=== PATIENT | male | born 1945 | race Caucasian/White ===

== ENCOUNTER 2016-04-09 18:34 | Emergency (ER) | payer MEDICARE, MEDICAID ==
[~2016-04-09] VITALS: Ht 165.1 cm; Wt 101.0 kg
[~2016-04-09 18:34] MED LIST: AMLO10TA3 PO; ATOR80TA77 PO; CARV25TA2 PO; DOCU100C54 PO; FURO40TA4 PO; INSU100I; INSU100I13 SUBQ; RANI150C4 PO; TRAZ-115 PO; ZYL100 PO
[2016-04-09 18:41] VITALS: BP 160/98; PULSE 73; RESP 24; O2SAT 95
--- NOTE | 2016-04-09 19:09 | ED.REPORT ---
HPI-URI / Cough / Cold Date of Service Apr 09, 2016 ED Provider: Nursing Notes Stated Complaint: SOB Chief Complaint: FLU/Cold Symptoms Allergies: Coded Allergies: Penicillins (Verified Allergy, Severe, unknown, 09/02/12) Scheduled Allopurinol (Allopurinol) 100 Mg Tablet 100 MG PO DAILY Amlodipine (Amlodipine) 10 Mg Tablet 10 MG PO DAILY Atorvastatin Calcium (Atorvastatin Calcium) 80 Mg Tablet 80 MG PO DAILY Carvedilol (Carvedilol) 25 Mg Tablet 25 MG PO BID Furosemide (Furosemide) 40 Mg Tablet 40 MG PO DAILY Insulin Glargine (Lantus U100 Solostar Insulin Pen) 100 Unit/1 Ml Insuln.pen 1 UNIT SUBQ QPM-INSULIN Ranitidine (Ranitidine) 150 Mg Capsule 150 MG PO DAILY Trazodone (Trazodone) 50 Mg Tablet 50 MG PO HS Miscellaneous Medications Docusate Sodium (Docu Soft) 100 Mg Capsule 100 MG PO Insulin Aspart (NovoLOG U-100 Pen) 100 Unit/Ml Insuln.pen General Time Seen by MD: 19:08 Past Medical History Smoking History Never Smoker Physical Exam Initial Vital Signs Vital Signs (First) Date Time Temp Pulse Resp B/P Pulse Ox O2 Delivery O2 Flow Rate FiO2 04/09/16 18:41 37.8 73 24 160/98 95 Room Air Discharge & Departure Referrals: Laney Mackey MD (PCP) Oriana Wilson Apr 09, 2016 19:09
--- NOTE | 2016-04-09 19:09 | ED.REPORT ---
HPI-URI / Cough / Cold Date of Service Apr 09, 2016 ED Provider: Javid Leyva DO Pt is a 70 y.o. male with a hx of COPD, HTN, and DM who presents to the ED c/o cough onset 2 days ago. Pt reports associated sore throat, myalgias, nausea, and weakness. He denies vomiting. Pt reports recieving a flu vaccination this season. Nursing Notes Stated Complaint: SOB Chief Complaint: FLU/Cold Symptoms Nursing Notes Reviewed: Yes Allergies: Coded Allergies: Penicillins (Verified Allergy, Severe, unknown, 09/02/12) Scheduled Allopurinol (Allopurinol) 100 Mg Tablet 100 MG PO DAILY Amlodipine (Amlodipine) 10 Mg Tablet 10 MG PO DAILY Atorvastatin Calcium (Atorvastatin Calcium) 80 Mg Tablet 80 MG PO DAILY Carvedilol (Carvedilol) 25 Mg Tablet 25 MG PO BID Furosemide (Furosemide) 40 Mg Tablet 40 MG PO DAILY Insulin Glargine (Lantus U100 Solostar Insulin Pen) 100 Unit/1 Ml Insuln.pen 1 UNIT SUBQ QPM-INSULIN Ranitidine (Ranitidine) 150 Mg Capsule 150 MG PO DAILY Trazodone (Trazodone) 50 Mg Tablet 50 MG PO HS Miscellaneous Medications Docusate Sodium (Docu Soft) 100 Mg Capsule 100 MG PO Insulin Aspart (NovoLOG U-100 Pen) 100 Unit/Ml Insuln.pen General Time Seen by MD: 19:08 Chief Complaint Cough, non-productive Hx Obtained From: Patient Arrived By: Walk-in Onset Occurred: 2 days ago Symptom Duration: Since onset Location: : Diffuse myalgia Quality: Painful Severity: Current: Moderate Recent Healthcare: No recent doctor visit, No recent hospitalization Past Medical History Past Medical History Hx of [place] Hx of CVA Reports: COPD, Diabetes mellitus, Hypertension Smoking History Never Smoker Ambulatory Status Independent Review of Systems Constitutional: Reports: Weakness - generalized Ears / Nose / Throat: Reports: Sore throat Respiratory: Reports: Non-productive cough GI: Reports: Nausea, Denies: Vomiting Complete sys rev & neg: except as marked. Musculoskeletal: Reports: Myalgia Physical Exam Initial Vital Signs Vital Signs (First) Date Time Temp Pulse Resp B/P Pulse Ox O2 Delivery O2 Flow Rate FiO2 04/09/16 18:41 37.8 73 24 160/98 95 Room Air Initial VS: Reviewed Head / Eyes: Atraumatic, Normocephalic Cardiovascular: Regular rate & rhythm, Intact distal pulses Abdomen / GI: No distention Extremities: Vascular intact, Neuro intact Skin: Warm, Dry, No cyanosis Neurologic: Alert, Oriented, Nonfocal Psychiatric: Mood/affect normal, Behavior normal, Normal thought content General/Constitutional: Awake, Alert, No acute distress, Well appearing, Well developed, Well hydrated, Well nourished, Not toxic appearing Appearance / Presentation: Positive: Obese ENT: Atraumatic, Airway patent Respiratory / Chest: Atraumatic, Breath sounds = bilat, No respiratory distress Squeaky wheeze, bilateral Frequent cough Interpretation & Diagnostics Lab Results Interpretation Result Diagram: 04/09/16 2019 04/09/16 2019 Test 04/09/16 20:19 White Blood Count 6.0th/mm3 (3.8-10.1) Red Blood Count 4.53mil/mm3 (4.40-5.80) Hemoglobin 13.2g/dL (13.8-17.2) Hematocrit 39.7% (41.0-50.0) Mean Corpuscular Volume 87.6fL (81-100) Mean Corpuscular Hemoglobin 29.1pg (27.0-35.0) Mean Corpuscular Hemoglobin Concent 33.2% (32.0-37.0) Red Cell Distribution Width 13.5% (12.3-15.4) Platelet Count 137bil/L (150-400) Neutrophils (%) (Auto) 70.8% (40-74) Lymphocytes (%) (Auto) 12.3% (14-46) Monocytes (%) (Auto) 15.2% (4-12) Eosinophils (%) (Auto) 1.0% (0-5) Basophils (%) (Auto) 0.5% (0-3) Sodium Level 141mEq/L (134-144) Potassium Level 5.0mEq/L (3.5-5.2) Chloride Level 101mEq/L (97-108) Carbon Dioxide Level 26mmol/L (18-29) Blood Urea Nitrogen 30mg/dL (8-27) Creatinine 2.01mg/dL (0.76-1.27) Estimat Glomerular Filtration Rate 35mL/min (>59) Glucose Level 146mg/dL (60-99) Calcium Level 9.8mg/dL (8.5-10.1) Total Bilirubin 0.7mg/dL (0.0-1.2) Aspartate Amino Transf (AST/SGOT) 25U/L (0-50) Alanine Aminotransferase (ALT/SGPT) 14U/L (0-44) Alkaline Phosphatase 88U/L (25-160) Total Protein 7.7g/dL (6.4-8.4) Albumin 4.3g/dL (3.4-5.0) Hold Nichole Top Tube Received (Received) X-Ray Chest Interpretation Chest Xray Interpretation: IMPRESSION: There is some linear streaky disease thought to be atelectasis rather than infiltrate in the right middle lobe. Acute airspace disease is not otherwise seen. Dictated by: Sal Horton M.D. on 04/09/2016 at 21:17 Approved by: Sal Horton M.D. on 04/09/2016 at 21:18 Re-Eval/Medical Decision Med Decision/Clinical Course 70-year-old male presents with fever chills and body aches. He has classic influenza a period his influenza test was positive. He had some faint expiratory wheezes and this was treated with a DuoNeb. The wheezes resolved. He was having frequent cough but he was never hypoxic, tachypneic or having any pleuritic pain. no chest pain. Chest x-ray does not show lobar infiltrate. Laboratory work is reassuring. He felt much better after treatment. At discharge his lungs were clear. Respiratory was 18 and his O2 sat was 96%. We will treat him for influenza. Albuterol MDI. Close outpatient follow-up. I considered myocardial infarction, pulmonary emboli and sepsis to be highly unlikely. This gentleman never had chest pain. He has classic influenza A and this was confirmed by laboratory work. Source of Hx: Old records Re-Evaluation/Progress #1: Time of Eval: 19:40 Re-Evaluation/Progress Note: Physical exam performed. Discussed lab results and plan for discharge, pt understands and agrees with plan. Re-Evaluation/Progress #2: Time of Eval: 22:11 Re-Evaluation/Progress Note: Pt rechecked. Pt is still experiencing frequent cough. Counseled Regarding: Diagnosis, Lab results, Need for follow-up, When/why to return to ED Discharge & Departure Shift Change Sign-Out Response to Therapy: Improved Impression: Primary Impression: Influenza due to influenza A virus Disposition: Home Discharge Condition All VS Reviewed: Yes Condition: Stable Patient Instructions: Influenza (ED) Additional Instructions: Albuterol 2 puffs every 3-4 hours as needed for wheezing. Tamiflu twice daily for 5 days. Doxycycline twice daily for 5 days. [place] one to 2 every 6 hours as needed for the body aches. I would like to call your primary care physician in the morning and set up a follow-up. Do not drive or drink alcohol or consume acetaminophen while taking the [place]. Do not hesitate to return for any problems or any worsening symptoms. Referrals: Laney Mackey MD (PCP) Scribe Attestation Portions of this note were transcribed by Pineda Merino. I, Dr. Leyva personally performed the history, physical exam and medical decision-making; I reviewed and confirmed the accuracy of the information in the transcribed note. Signed by : Greg Main, 04/09/16 and [id number]. copies to: Laney Mackey MD, Todd P DO Apr 09, 2016 19:08 PINEDA MERINO Apr 09, 2016 19:47
[2016-04-09] MEDS ORDERED: Albuterol-Ipratropium 3 mL Inhalation Solution NEB ONE (20:05)
[2016-04-09] MEDS ORDERED: MethylprednisoLONE Sodium Succinate 62.5 mg/mL 2 mL Inj IVPUSH ONE (20:05)
[2016-04-09 20:34] LABS: BASOPHILS % (AUTO) 0.5 % (0-3); MONOCYTES % (AUTO) 15.2 % (4-12); Mean Corpuscular Hemoglobin 29.1 pg (27.0-35.0); Mean Corpuscular Volume 87.6 fL (81-100); NEUTROPHILS % (AUTO) 70.8 % (40-74); Platelet Count 137 bil/L (150-400)
[2016-04-09 20:42] VITALS: PULSE 72; RESP 18; O2SAT 94
[2016-04-09] MEDS ORDERED: 0.9% Sodium Chloride 1,000 ML IV ONE (21:00)
[2016-04-09 21:16] VITALS: BP 154/68; RESP 20; O2SAT 95
--- NOTE | 2016-04-09 21:21 | DRSVH ---
PROCEDURE: X-RAY CHEST, TWO VIEWS ([id number]) INDICATIONS: cough TECHNIQUE: 2 views of the chest were acquired. COMPARISON: [facility], , CHEST 1VW (PORTABLE), 04/12/2013, 11:14. [facility], , CHEST 2VW, 11/17/2012, 10:37. FINDINGS: Surgical changes and devices: None. Lungs and pleura: No pleural effusions or pneumothorax. There some linear streaky disease in the rig ht middle lobe. This is thought to be atelectasis. Lungs are otherwise considered clear. Mediastinum: Mediastinal contours are normal. Heart size is normal. Bones and chest wall: No suspicious bony abnormalities. Soft tissues appear unremarkable. IMPRESSION: There is some linear streaky disease thought to be atelectasis rather than infiltrate in the right middle lobe. Acute airspace disease is not otherwise seen. Dictated by: Sal Horton M.D. on 04/09/2016 at 21:17 Approved by: Sal Horton M.D. on 04/09/2016 at 21:18
[2016-04-09] MEDS ORDERED: _Albuterol-HFA 60 Puff Inhaler INHALATION PRN (21:45)
[2016-04-09] MEDS ORDERED: HYDROcodone-APAP 5-325 mg Tablet PO ONE (22:30)
[2016-04-09 22:54] VITALS: BP 155/64; PULSE 76; RESP 20; O2SAT 95
== END 2016-04-09 22:55 | disposition home or self-care (01) ==
LOC: SED 18:34
DX: J10.89 Influenza due to other identified influenza virus with other manifestations (principal); R05 Cough; J44.9 Chronic obstructive pulmonary disease, unspecified; I10 Essential (primary) hypertension; E11.9 Type 2 diabetes mellitus without complications; I25.2 Old myocardial infarction; Z88.0 Allergy status to penicillin; Z79.4 Long term (current) use of insulin; Z86.73 Personal history of transient ischemic attack (TIA), and cerebral infarction without residual deficits
CPT/HCPCS: 36415; 71020; 80053; 85025; 87804; 94640; 96361; 96374; 99285; J2930; J7030; J7620